=== PATIENT | male | born 1985 | race Caucasian/White ===

== ENCOUNTER 2016-09-11 22:50 | Emergency (ER) | payer OTHER | END 2016-09-12 00:05 | disposition left against medical advice (07) | LOC: CED 22:50 | DX: Z53.21 Procedure and treatment not carried out due to patient leaving prior to being seen by health care provider (principal) ==

== ENCOUNTER 2017-01-04 22:05 | Emergency (ER) | payer OTHER ==
[~2017-01-04] VITALS: Ht 177.8 cm; Wt 63.5 kg
== END 2017-01-04 23:10 | disposition home or self-care (01) ==
LOC: CFTX 22:05 → CED 22:05 → CFTX 22:51
DX: K08.89 Other specified disorders of teeth and supporting structures (principal); K02.9 Dental caries, unspecified; F17.210 Nicotine dependence, cigarettes, uncomplicated
CPT/HCPCS: 99282